=== PATIENT | male | born 1945 | race Caucasian/White ===

== ENCOUNTER 2017-10-02 23:06 | Inpatient (IN) | payer MEDICARE, OTHER ==
[~2017-10-02] VITALS: Ht 175.3 cm; Wt 75.3 kg
--- NOTE | 2017-10-03 01:00 | NUR ---
DR. CRAWLEY CALLED ABOUT HIS STANDING ORDERS OF ATIVAN AND RESTORIL
--- NOTE | 2017-10-03 01:15 | NUR ---
PATIENT ADMITTED FROM [facility], INITIALLY CAME FROM [facility], ARRIVED TO THE UNIT AROUND 0100 ACCOMPANIED BY PARAMEDICS. PATIENT ADMITTED ON 5150 FOR GD. PER HOLD PATIENT WAS CONFUSED, AGITATED, DISORGANIZED, DEPRESSED. PLACED PATIENT IN BED, AWAKE, ALERT, CONFUSED, CALM, COOPERATIVE, WEAK, UNABLE TO AMBULATE, HOME OFFICE CLAIM SPECIALIST ASSIGNED ASSISTED PATIENT TO TRANSFER FROM STRETCHER TO HIS BED, PATIENT REFUSED ALSO TO WALK DUE WEAKNESS ACCORDING TO HIM, "NO CAMINAR". RESPIRATION EVEN, BREATHING PATTERN NON-LABORED, NO APPARENT DISTRESS NOTED. SHOWS NO S/S OF ANY PAIN. BELONGINGS WERE INVENTORIED AND CHECKED FOR CONTRABAND, VALUABLES TO SAFE. SKIN DRY/INTACT. PATIENT IS UNDER THE PSYCHIATRIC CARE OF DR. WAGNER, ORDERS OBTAINED, PATIENT IS UNDER THE MEDICAL CARE OF DR. RON, MED RECON DONE. BED LOCKED AND PLACED ON LOWEST POSITION. WILL CONTINUE TO MONITOR Q 15 MINS. TO MAINTAIN SAFETY.
[2017-10-03] MEDS ORDERED: ENTA200T PO (01:37)
[2017-10-03] MEDS ORDERED: MIRT15TA7 PO (01:37)
[2017-10-03] MEDS ORDERED: HYDR-3024 PO (01:37)
[2017-10-03] MEDS ORDERED: CARB1TAB40 PO (01:37)
[2017-10-03] MEDS ORDERED: HYDR-552 PO ×2 (01:37→01:47)
[2017-10-03] MEDS ORDERED: TAMS0.4C34 PO (01:37)
[2017-10-03] MEDS ORDERED: GABA600T2 PO (01:37)
[2017-10-03] MEDS ORDERED: SUCR1TAB PO (01:37)
[2017-10-03] MEDS ORDERED: LEVO150T8 PO (01:37)
[2017-10-03] MEDS ORDERED: ACET325T53 PO (01:47)
[2017-10-03] MEDS ORDERED: SOLI5TAB2 PO (01:47)
[2017-10-03] MEDS ORDERED: LINA145C PO (01:47)
[2017-10-03] MEDS ORDERED: POLY255P2 PO (01:47)
[2017-10-03] MEDS ORDERED: RASA0.5T2 PO (01:47)
[2017-10-03] MEDS ORDERED: QUET25TA PO (01:52)
[2017-10-03] MEDS ORDERED: DIVA500T2 PO (01:52)
[2017-10-03] MEDS ORDERED: CHLO25CA22 PO (01:52)
[2017-10-03] MEDS ORDERED: hydrOXYzine 10 MG TABLET PO PRN (02:00)
[2017-10-03] MEDS ORDERED: TEMAZEPAM 7.5 MG CAPSULE PO PRN (02:30)
[2017-10-03] MEDS ORDERED: MAGNESIUM HYDROXIDE 30 ML UDC PO PRN (02:30)
[2017-10-03] MEDS ORDERED: QUETIAPINE FUMARATE 25 MG TABLET PO PRN (02:30)
[2017-10-03] MEDS ORDERED: LORAZEPAM 0.5 MG TABLET PO PRN (02:30)
[2017-10-03] MEDS ORDERED: ACETAMINOPHEN 325 MG TABLET PO PRN (02:30)
[2017-10-03] MEDS ORDERED: MAG HYDROX/AL HYDROX/SIMETH 30 ML UDC PO PRN (02:30)
[2017-10-03] MEDS ORDERED: LORAZEPAM 1 MG TABLET PO PRN (04:30)
--- NOTE | 2017-10-03 06:13 | NUR ---
mrsa screen done and collected by general labor forklift operator
--- NOTE | 2017-10-03 06:14 | NUR ---
CALLED FAMILYKANE WITH THE SON GIGI ABOUT PATIENT'S ADMISSION TO THE UNIT.
[2017-10-03] MEDS ORDERED: LEVOTHYROXINE SODIUM 150 MCG TABLET PO SCH (07:30)
[2017-10-03 07:33] LABS: BASOPHILS % (AUTO) 0.3 % (0.0-2.0); EOSINOPHILS % (AUTO) 0.8 % (0.0-6.0); HEMATOCRIT 42 % (39-51); HEMOGLOBIN 14.4 g/dL (13.5-17.5); LYMPHOCYTES # (AUTO) 1.2 /CMM (0.8-4.8); LYMPHOCYTES % (AUTO) 18.9 % (20.0-44.0); MEAN CORPUSCULAR HEMOGLOBIN 34 PG (26.0-33.0); MEAN CORPUSCULAR HGB CONC 34 g/dl (31.0-36.0); MEAN CORPUSCULAR VOLUME 99 fL (80-96); MONOCYTES # (AUTO) 0.5 /CMM (0.1-1.30); MONOCYTES % (AUTO) 7.6 % (2.0-12.0); NEUTROPHILS # (AUTO) 4.4 /CMM (1.8-8.9); NEUTROPHILS % (AUTO) 72.4 % (43.0-81.0); PLATELET COUNT (AUTO) 145 /CMM (150-450); RDW COEFFICIENT OF VARIATION 13.4 (11.5-15.0); RED BLOOD CELL COUNT(AUTO) 4.28 MIL/uL (4.5-6.0); WHITE BLOOD COUNT (AUTO) 6.1 K/uL (4.3-11.0)
[2017-10-03 07:44] LABS: CALCIUM, SERUM 7.8 mg/dL (8.5-10.1); CREATININE 0.9 mg/dL (0.6-1.3); PHOSPHORUS 2.3 mg/dL (2.5-4.9)
[2017-10-03 07:47] LABS: POTASSIUM 2.7 mmol/L (3.5-5.1)
[2017-10-03 07:50] LABS: INR 1.02 (0.87-1.13)
[2017-10-03 07:52] LABS: THYROID STIMULATING HORMONE 5.034 uIU/mL (0.358-3.74)
[2017-10-03 08:00] VITALS: BP 156/89
--- NOTE | 2017-10-03 08:13 | NUR ---
GPS/RN CALLED 2 TIMES ALREADY TO [email or web address] [facility]CHANGE FOR THE ORDERS ON CRITICAL LAB. VALUES. WAITING FOR MD TO CALL BACK
--- NOTE | 2017-10-03 08:26 | NUR ---
GPS/RN ORDERS FOR STAT POTASSIUM RECEIVED FROM DR TIMMONS AND CARRIED OUT
[2017-10-03] MEDS: OXYBUTYNIN CHLORIDE 5 MG TABLET PO SCH ×2 (09:00→18:05)
[2017-10-03] MEDS: TAMSULOSIN 0.4 MG CAP.SR.24H PO SCH (09:00)
[2017-10-03] MEDS ORDERED: ACETAMINOPHEN 325 MG TABLET PO SCH (09:00)
[2017-10-03] MEDS: POLYETHYLENE GLYCOL 3350 17 GM POWD.PACK PO SCH (09:00)
[2017-10-03] MEDS: SUCRALFATE 1 G TABLET PO SCH ×2 (09:00→18:05)
--- NOTE | 2017-10-03 09:24 | NUR ---
GPS/RN ORDERS FOR POTASSIUM REPLACEMENT 40 MEQ PO RECEIVED FROM DR TIMMONS.
[2017-10-03] MEDS ORDERED: LEVOTHYROXINE SODIUM 75 MCG TABLET PO SCH (09:27)
[2017-10-03] MEDS ORDERED: POTASSIUM CHLORIDE 20 MEQ TAB.PRT.SR PO ONE (09:30)
[2017-10-03] MEDS: LEVOTHYROXINE SODIUM 75 MCG TABLET PO SCH (09:50)
[2017-10-03] MEDS: CARBIDOPA/LEV CR 50/200 MG 1 UDTAB.SA PO SCH ×3 (10:00→21:14)
--- NOTE | 2017-10-03 11:13 | NUR ---
GPS/RN PT WAS SPITTING CRASHED MEDS AND REFUSED TO EAT/DRINK.REZA SHELBY MADE AWARE OF PT NONCOMPLIANCE WITH MEDS. NEW ORDERS GIVEN AND CARRIED OUT
--- NOTE | 2017-10-03 12:48 | NUR ---
GPS/RN UNABLE TO START IV AT THIS TIME PT SCREAMING AND FLAILING THE ARMS.
[2017-10-03] MEDS ORDERED: Potassium Chloride 40 MEQ in IV NS 0.9% 1,000 ML IV ONE (13:29)
--- NOTE | 2017-10-03 13:48 | NUR ---
GPS/RN H/L LEFT FA #22 STARTED.WAITING FOR IV BAG FROM PHARMACY.
--- NOTE | 2017-10-03 15:26 | NUR ---
GPS/RN MEDS GIVEN WITH THE HELP OF FAMILY MEMBER, IVF IN FUSING WELL. PT ATE HOME FOOD
[2017-10-03] MEDS ORDERED: K PHOS NEUTRAL 250 MG TABLET PO ONE (15:30)
[2017-10-03 16:00] VITALS: BP 125/82
[2017-10-03] MEDS: risperiDONE 1 MG TABLET PO SCH (18:05)
--- NOTE | 2017-10-03 19:30 | NUR ---
RN NOTES RECEIVED PATIENT IN BED AWAKE, AO TO PERSON AND FAMILY MEMBERS. NO ACUTE DISTRESS NOTED. NO SIGNS OF PAIN NOTED. IV SITE PATENT, INTACT; IVF INFUSING ORDERED. AT BEDSIDE. PATIENT CALM AT THIS TIME. SAFETY REMINDERS GIVEN TO PATIENT AND . PATIENT ON LOW BED WITH BILATERAL UPPER SIDE RAILS UP. CALL SOTO WITHIN EASY REACH. WILL CONTINUE TO MONITOR.
[2017-10-03 20:00] VITALS: BP 139/76
[2017-10-03] MEDS: GABAPENTIN 300 MG CAPSULE PO SCH (21:13)
[2017-10-03] MEDS: MIRTAZAPINE 15 MG TABLET PO SCH (21:14)
[2017-10-03] MEDS: TEMAZEPAM 15 MG CAPSULE PO PRN (21:59)
[2017-10-04] MEDS: CARBIDOPA/LEV CR 50/200 MG 1 UDTAB.SA PO SCH ×3 (05:37→20:23)
--- NOTE | 2017-10-04 06:12 | NUR ---
RN NOTES PATIENT ASLEEP, EASILY AROUSABLE. RESPIRATIONS EVEN. NO SIGNS OF PAIN NOTED. DUE MEDS GIVEN WITH NO ASE NOTE. NEEDS ATTENDED. KEPT CLEAN, DRY, AND COMFORTABLE. SAFETY PRECAUTIONS AND COMFORT MEASURES IN PLACE. WILL GIVE REPORT TO DAY SHIFT FOR CONTINUITY OF CARE.
[2017-10-04 08:00] VITALS: BP 150/66
[2017-10-04] MEDS: POLYETHYLENE GLYCOL 3350 17 GM POWD.PACK PO SCH (09:00)
[2017-10-04] MEDS: SUCRALFATE 1 G TABLET PO SCH ×2 (10:29→17:56)
[2017-10-04] MEDS: OXYBUTYNIN CHLORIDE 5 MG TABLET PO SCH ×2 (10:29→17:56)
[2017-10-04] MEDS: TAMSULOSIN 0.4 MG CAP.SR.24H PO SCH (10:29)
[2017-10-04] MEDS: LEVOTHYROXINE SODIUM 75 MCG TABLET PO SCH (10:29)
[2017-10-04] MEDS: risperiDONE 1 MG TABLET PO SCH ×2 (10:30→17:57)
[2017-10-04] MEDS ORDERED: LINZESS 145 MG PO SCH (11:00)
[2017-10-04 12:46] LABS: ALBUMIN 3.3 g/dL (3.4-5.0); CALCIUM, SERUM 8.2 mg/dL (8.5-10.1); CREATININE 0.9 mg/dL (0.6-1.3); TOTAL PROTEIN, SERUM 6.9 g/dL (6.4-8.2)
--- NOTE | 2017-10-04 14:41 | NUR ---
GPS/RN REZA SHELBY POT FLUXER MADE AWARE OF LOW POTASSIUM.
[2017-10-04] MEDS ORDERED: POTASSIUM CHLORIDE 20 MEQ TAB.PRT.SR PO ONE (15:00)
[2017-10-04 16:00] VITALS: BP 115/65
--- NOTE | 2017-10-04 19:20 | NUR ---
PATIENT'S DAUGHTER, EDDIE WILL BRING PATIENT'S HOME MEDS, JENISE AGUSTIN AM, 10/05/17
--- NOTE | 2017-10-04 19:53 | NUR ---
ANGELY MORGAN WILL BRING THE MEDICATION JENISE VELEZ AM, Addendum: 10/04/17 at 2006 by MADIHA ANDREW RN NOTES ABOVE INTENDED FOR ANOTHER PATIENT. USER ERROR.
[2017-10-04 20:01] VITALS: BP 140/70
--- NOTE | 2017-10-04 20:20 | NUR ---
Patient refused Temazepam cap for sleep per family's request. Will waste medication.
--- NOTE | 2017-10-04 20:20 | NUR ---
PATIENT TOOK HIS CARBIDOPA MEDICATION FOR [facility]'S, FAMILY AT THE BEDSIDE AT 2022.
[2017-10-04] MEDS: GABAPENTIN 300 MG CAPSULE PO SCH (21:00)
[2017-10-04] MEDS: MIRTAZAPINE 15 MG TABLET PO SCH (21:01)
--- NOTE | 2017-10-04 21:05 | NUR ---
PATIENT REFUSED HIS GABAPENTIN AND MIRTAZAPINE TONIGHT
[2017-10-05] MEDS: CARBIDOPA/LEV CR 50/200 MG 1 UDTAB.SA PO SCH ×3 (05:00→21:43)
[2017-10-05] MEDS: LEVOTHYROXINE SODIUM 75 MCG TABLET PO SCH (07:30)
[2017-10-05 08:00] VITALS: BP 168/90
[2017-10-05 08:13] VITALS: BP 160/90
[2017-10-05] MEDS: SUCRALFATE 1 G TABLET PO SCH ×2 (09:00→16:45)
[2017-10-05] MEDS: risperiDONE 1 MG TABLET PO SCH ×3 (09:00→16:45)
[2017-10-05] MEDS: POLYETHYLENE GLYCOL 3350 17 GM POWD.PACK PO SCH (09:00)
[2017-10-05] MEDS: OXYBUTYNIN CHLORIDE 5 MG TABLET PO SCH ×2 (09:00→16:46)
[2017-10-05] MEDS: TAMSULOSIN 0.4 MG CAP.SR.24H PO SCH (09:00)
[2017-10-05 09:37] VITALS: BP 149/86
--- NOTE | 2017-10-05 14:13 | NUR ---
INITIAL DISCHARGE PLAN: Pt wishes to return home to [address] [place] [id number] . SW confirmed with pts Richelle Borden [phone] who also wishes for pt to return home. RAYO will help form a safe and proper discharge home in collaboration with .
[2017-10-05 16:00] VITALS: BP 165/96
[2017-10-05 20:14] VITALS: BP 117/67
[2017-10-05] MEDS: GABAPENTIN 300 MG CAPSULE PO SCH (21:43)
[2017-10-05] MEDS: MIRTAZAPINE 15 MG TABLET PO SCH (21:43)
[2017-10-05] MEDS: TEMAZEPAM 15 MG CAPSULE PO PRN (23:02)
--- NOTE | 2017-10-05 23:06 | NUR ---
GPS/RN STILL AWAKE AT THIS TIME, RESTORIL 15 MG PO WAS GIVEN ORDERED. WILL MONITOR.
[2017-10-06] MEDS: CARBIDOPA/LEV CR 50/200 MG 1 UDTAB.SA PO SCH ×3 (06:14→21:25)
--- NOTE | 2017-10-06 06:16 | NUR ---
GPS/RN AWAKENED PATIENT TO TAKE SINEMET. TOLERATED. PATIENT SLEPT GOOD AFTER TAKING RESTORIL 15 MG PO. ALL NEEDS ATTENDED AT THIS TIME. WILL CONTINUE TO MONITOR.
[2017-10-06 08:50] VITALS: BP 120/75
[2017-10-06] MEDS: SUCRALFATE 1 G TABLET PO SCH ×2 (09:19→17:00)
[2017-10-06] MEDS: LEVOTHYROXINE SODIUM 75 MCG TABLET PO SCH (09:19)
[2017-10-06] MEDS: OXYBUTYNIN CHLORIDE 5 MG TABLET PO SCH ×2 (09:20→17:00)
[2017-10-06] MEDS: TAMSULOSIN 0.4 MG CAP.SR.24H PO SCH (09:20)
[2017-10-06] MEDS: risperiDONE 0.25 MG TABLET PO SCH ×2 (09:22→17:00)
[2017-10-06] MEDS: POLYETHYLENE GLYCOL 3350 17 GM POWD.PACK PO SCH (10:12)
[2017-10-06 16:00] VITALS: BP 112/75
--- NOTE | 2017-10-06 18:20 | NUR ---
GPS/RN-NOTES PATIENT REFUSED ALL 17OO MEDICATIONS DESPITE THE [place] STAFF EXPLAINED RISK AND BENEFITS. STATED" I ONLY TAKE MEDICATIONS WHEN MY SON IS HERE". OFFERED X3.
[2017-10-06] MEDS: MIRTAZAPINE 15 MG TABLET PO SCH (21:25)
[2017-10-06] MEDS: GABAPENTIN 300 MG CAPSULE PO SCH (21:25)
[2017-10-07] MEDS: CARBIDOPA/LEV CR 50/200 MG 1 UDTAB.SA PO SCH ×4 (05:22→22:06)
[2017-10-07] MEDS: LEVOTHYROXINE SODIUM 75 MCG TABLET PO SCH (07:30)
[2017-10-07 08:00] VITALS: BP 143/91
[2017-10-07] MEDS: SUCRALFATE 1 G TABLET PO SCH ×2 (08:36→16:18)
[2017-10-07] MEDS: POLYETHYLENE GLYCOL 3350 17 GM POWD.PACK PO SCH (08:36)
[2017-10-07] MEDS: TAMSULOSIN 0.4 MG CAP.SR.24H PO SCH (08:36)
[2017-10-07] MEDS: risperiDONE 0.25 MG TABLET PO SCH ×2 (08:36→16:18)
[2017-10-07] MEDS: OXYBUTYNIN CHLORIDE 5 MG TABLET PO SCH ×2 (08:36→16:18)
[2017-10-07 16:00] VITALS: BP 162/92
--- NOTE | 2017-10-07 16:20 | NUR ---
vegetable preparer aware patient has poor oral intake and is not med complaint.
[2017-10-07 17:00] VITALS: BP 147/86
[2017-10-07 18:50] VITALS: BP 147/86
--- NOTE | 2017-10-07 18:54 | NUR ---
family at bedside. pt ate 100% of his dinner meal.
--- NOTE | 2017-10-07 19:23 | NUR ---
GPS RN NOTES RECEVIED REPORTS FROM DAY SHIFT NURSE , PT. FAMILY CALLING TO DAY NURSE TO SEE THE PATIENT,THIS HIDE STRETCHER HAND WENT TO SEE THE PATIENT WITH DAY NURSE . PT. FAMILY C/O RIGHT ANKLE PAIN , AFTER PHYSICAL THERAPY WALKING TO THE PT. NOTIFIED CLIENT RESOURCE SPECIALIST DR. ANTHONY , WAITING TO CALL BACK. Addendum: 10/07/17 at 1949 by MIGUEL ANGEL MCGINNIS RN CORRECTION ON MY ABOVE NOTES : LEFT ANKLE PAIN / PER FAMILY MEMBER, NOT RIGHT ANKLE PAIN
--- NOTE | 2017-10-07 19:42 | NUR ---
GPS/RN-NOTES PATIENT WAS SEEN BY DR. WAGNER AND HE'S AWARE OF LEFT ANKLE PAIN, AND AWARE OF PT. WAS REFUSING MEDICATION AND POOR INTAKE .
--- NOTE | 2017-10-07 19:49 | NUR ---
GPS RN NOTES: RECEIVED VERBAL ORDERS FROM DR. HENNING , FOR LEFT FOOT ANKLE, APPLY ICE PACK AND MOTRIN 400 MG PO PRN Q8H, NOTED AND CARRIED OUT.
--- NOTE | 2017-10-07 19:49 | NUR ---
GPS RN NOTES: RECEIVED VERBAL ORDERS FROM DR. HENNING , APPLY ICE PACK AND MOTRIN 400 MG PO PRN Q8H, NOTED AND CARRIED OUT.
[2017-10-07] MEDS ORDERED: IBUPROFEN 400 MG TABLET PO PRN (20:00)
[2017-10-07 20:12] VITALS: BP 117/69
--- NOTE | 2017-10-07 20:56 | NUR ---
GPS RN NOTES : PT. C/O LEFT FOOT ANKLE PAIN 06/20 , MOTRIN 400 MG PO PRN GIVEN, PER PT. REQUEST, WILL CONTINUE TO MONITOR
[2017-10-07] MEDS: MIRTAZAPINE 15 MG TABLET PO SCH (22:07)
[2017-10-07] MEDS: GABAPENTIN 300 MG CAPSULE PO SCH (22:07)
--- NOTE | 2017-10-08 06:38 | NUR ---
GPS RN NOTES; PT. RESTING HIS BED , DURING SHIFT PT. SLEPT 9 HOURS OF SLEEP, NO ACUTE DISTRESS NOTED ,LEFT FOOT ANKLE DENIES ANY DISCOMFORT AT THIS TIME, ENDORSE TO ON COMING NURSE FOR CONTINUITY OF CARE.
[2017-10-08] MEDS: LEVOTHYROXINE SODIUM 75 MCG TABLET PO SCH (07:30)
[2017-10-08 08:00] VITALS: BP 150/87
[2017-10-08] MEDS: OXYBUTYNIN CHLORIDE 5 MG TABLET PO SCH ×2 (08:48→17:00)
[2017-10-08] MEDS: POLYETHYLENE GLYCOL 3350 17 GM POWD.PACK PO SCH (08:48)
[2017-10-08] MEDS: SUCRALFATE 1 G TABLET PO SCH ×2 (08:48→17:00)
[2017-10-08] MEDS: TAMSULOSIN 0.4 MG CAP.SR.24H PO SCH (08:48)
[2017-10-08] MEDS: risperiDONE 0.25 MG TABLET PO SCH ×2 (08:48→17:00)
--- NOTE | 2017-10-08 09:00 | NUR ---
GPS/RN PATIENT REFUSED A.M. MEDICATION X 3, EXPLAINED RISKS AND BENEFITS (WITH VEHICLE OPERATOR INTERPRETATION IN BENINESE), STATED "I DON'T NEED ANY MEDICATION. "WILL CONTINUE TO ENCOURAGE TO COMPLY WITH MD REGIMEN.
--- NOTE | 2017-10-08 09:50 | NUR ---
GPS/E BUSINESS PROJECT MANAGER WAS NOTIFIED OF REFUSAL TO TAKE A.M. MEDICATIONS. PATIENT REFUSED TO SPEAK WITH FAMILY ON PHONE FOR ENCOURAGEMENT, STATED " IM VERY ANGRY WITH THEM", WILL CONTINUE TO ENCOURAGE TO COMPLY WITH MD REGIMEN.
--- NOTE | 2017-10-08 09:50 | NUR ---
PATIENT WAS ENCOUARGED BY FAMILY OVER PHONE Addendum: 10/08/17 at 1136 by DAMASO JOSHI RN DISREGARD ABOVE NOTE.
--- NOTE | 2017-10-08 11:00 | NUR ---
GPS/RN PATIENT NOTED WITH CLEAR DISCHARGE FROM [facility], PER DR CHAKRABORTY, NEW ORDER FOR GRAM STAIN CULTURE WITH WHITE CELL COUNT, SAMPLE COLLECTED AND LAB CALLED FOR PICKUP. NEW ORDER FOR OVA PARASITE PUT IN SYSTEM, AWAITING STOOL SAMPLE COLLECTION FROM PATIENT, NO BM AT THIS TIME. .
--- NOTE | 2017-10-08 12:33 | NUR ---
GPS/RN PATIENT REFUSED LUNCH X 3, EXPLAINED RISKS AND BENEFITS. WILL CONTINUE TO ENCOURAGE ADEQUATE INTAKE.
--- NOTE | 2017-10-08 12:37 | NUR ---
GPS/RN PATIENT REFUSED SINEMET X 3, EXPLAINED RISKS AND BENEFITS, WILL CONTINUE TO ENCOURAGE TO COMPLY WITH MD REGIMEN.
[2017-10-08] MEDS: CARBIDOPA/LEV CR 50/200 MG 1 UDTAB.SA PO SCH ×2 (13:00→21:00)
--- NOTE | 2017-10-08 15:57 | NUR ---
GPS/RN NO BM AT THIS TIME, EMBOSSING TOOL SETTER AWARE TO NOTIFY RN WHEN PATIENT HAS BM FOR COLLECTION OF SPECIMEN.
[2017-10-08 16:00] VITALS: BP 150/82
--- NOTE | 2017-10-08 17:36 | NUR ---
GPS/RN PATIENT HAS VERY POOR MEAL INTAKE THROUGHOUT SHIFT. IMAGERY ANALYST AND RN ATTEMPTED TO FEED PATIENT BUT IS ADAMANTLY REFUSING HIS MEALS. OFFERED SNACKS BUT REFUSED, DRANK I JUICE, 2 CUPS OF WATER AND 1/2 CARTON OF MILK. WILL CONTINUE TO ENCOURAGE AND EXPLAIN THE IMPORTANCE OF ADEQUATE INTAKE.
--- NOTE | 2017-10-08 17:42 | NUR ---
GPS/RN PATIENT ADAMANTLY REFUSED 1700 MEDICATIONS X 3, EXPLAINED RISKS AND BENEFITS, CONTINUES TO REFUSE, WILL CONTINUE TO ENCOURAGE TO COMPLY WITH MD REGIMEN.
[2017-10-08 20:00] VITALS: BP 117/67
[2017-10-08] MEDS: risperiDONE LIQUID 1 MG/ML ML PO SCH (21:00)
[2017-10-08] MEDS: MIRTAZAPINE 15 MG TABLET PO SCH (21:13)
[2017-10-08] MEDS: GABAPENTIN 300 MG CAPSULE PO SCH (21:13)
--- NOTE | 2017-10-08 21:14 | NUR ---
GPS/[facility] NOTES: PT. REFUSED ALL HS MEDS ORDERED. OFFERED 3X. EXPLAINED RISK AND BENEFITS. PT. STILL REFUSED. PT. GETS AGITATED WHEN ASKED. WILL CONTINUE TO MONITOR.
[2017-10-09] MEDS: CARBIDOPA/LEV CR 50/200 MG 1 UDTAB.SA PO SCH ×4 (05:00→21:00)
[2017-10-09] MEDS: LEVOTHYROXINE SODIUM 75 MCG TABLET PO SCH ×2 (07:30→08:37)
[2017-10-09 08:07] VITALS: BP 128/79
[2017-10-09] MEDS: SUCRALFATE 1 G TABLET PO SCH ×3 (08:37→17:00)
[2017-10-09] MEDS: OXYBUTYNIN CHLORIDE 5 MG TABLET PO SCH ×3 (08:37→17:00)
[2017-10-09] MEDS: TAMSULOSIN 0.4 MG CAP.SR.24H PO SCH ×2 (08:37→09:00)
[2017-10-09] MEDS: POLYETHYLENE GLYCOL 3350 17 GM POWD.PACK PO SCH ×2 (08:37→09:00)
[2017-10-09] MEDS: risperiDONE LIQUID 1 MG/ML ML PO SCH ×3 (08:51→21:00)
--- NOTE | 2017-10-09 12:14 | NUR ---
RN NOTE: PATIENT REFUSED MEDS. TRIED TO OFFER OVER 3X.
[2017-10-09 16:00] VITALS: BP 146/92
[2017-10-09 20:00] VITALS: BP 149/82
[2017-10-09] MEDS: GABAPENTIN 300 MG CAPSULE PO SCH (21:13)
[2017-10-09] MEDS: MIRTAZAPINE 15 MG TABLET PO SCH (21:13)
--- NOTE | 2017-10-09 21:14 | NUR ---
PATIENT REFUSED ALL HIS NIGHT MEDICATIONS
--- NOTE | 2017-10-09 22:30 | NUR ---
ADMITTED FROM [facility], ARRIVED TO THE UNIT AROUND 2230. PATIENT ADMITTED ON 5150 FOR GD. PER HOLD PATIENT IS DISORIENTED, WANTING FOR HELP, DOES NOT REMEMBER WHILE SHE WAS AT THE HOSPITAL EARLIER IN THE DAY. SHE CONTACTED 911 REQUESTING FOR HELP, ASKING FOR HER FATHER, DOES NOT KNOW IF HE IS . PATIENT IS FORGETFUL, ANXIOUS, CONFUSED. PATIENT AWAKE, ALERT, ORIENTED X2, NAME AND TIME. PATIENT ABLE TO AMBULATE TO THE TOILET NOW WITH ASSISTANCE. SKIN ASSESSMENT DONE, NO PRESSURE ULCER NOTED BUT ABRASIONS. PATIENT REFUSED TO SIGN DOCUMENTS/CONSENTS. BELONGINGS WERE INVENTORIED AND CHECKED FOR CONTRABAND. VALUABLES PUT TO SAFE. PATIENT SHOWS NO S/S OF ANY DISCOMFORT, NO ACUTE DISTRESS NOTED. RESPIRATION EVEN, BREATHING PATERN NON-LABORED. PATIENT IS UNDER THE PSYCHIATRIC CARE OF DR. LOYA AND UNDER THE MEDICAL CARE OF DR. CHAKRABORTY. BED LOCKED AND PLACED ON LOWER POSITION TO MAINTAIN SAFETY. WILL CONTINUE TO MONITOR FOR SAFETY AND BEHAVIOR.
[2017-10-10] MEDS: CARBIDOPA/LEV CR 50/200 MG 1 UDTAB.SA PO SCH ×3 (05:00→21:00)
--- NOTE | 2017-10-10 05:42 | NUR ---
REFUSED MORNING DOSE OF HIS SINEMET TODAY @ 6304
[2017-10-10] MEDS: LEVOTHYROXINE SODIUM 75 MCG TABLET PO SCH (07:30)
[2017-10-10 08:00] VITALS: BP 147/84
[2017-10-10] MEDS: OXYBUTYNIN CHLORIDE 5 MG TABLET PO SCH ×2 (09:00→17:00)
[2017-10-10] MEDS: POLYETHYLENE GLYCOL 3350 17 GM POWD.PACK PO SCH (09:00)
[2017-10-10] MEDS: SUCRALFATE 1 G TABLET PO SCH ×2 (09:00→17:00)
[2017-10-10] MEDS: risperiDONE LIQUID 1 MG/ML ML PO SCH ×2 (09:00→21:00)
[2017-10-10] MEDS: TAMSULOSIN 0.4 MG CAP.SR.24H PO SCH (09:00)
--- NOTE | 2017-10-10 12:55 | NUR ---
Pt. bit the arm of the the ware tester, pt. is resistive to care, aggressive, restless, trying to get up in the nelli chair and not following direction. Addendum: 10/10/17 at 1258 by SHANTA HUERTA RN Refusing po med Addendum: 10/10/17 at 1804 by SHANTA HUERTA RN Dr. Salazar notified with an order of Zyprexa 5 mg IM
[2017-10-10] MEDS ORDERED: OLANZAPINE 10 MG VIAL IM ONE (13:00)
[2017-10-10 16:00] VITALS: BP 137/77
--- NOTE | 2017-10-10 17:03 | NUR ---
GPS/RN-NOTES PATIENT REFUSED ALL 1700 MEDICATIONS DESPITE ENCOURAGEMENT. OFFERED X3
--- NOTE | 2017-10-10 18:40 | NUR ---
GPS/RN-NOTES PATIENT HAD NO BM TODAY, WILL ENDORSE TO INCOMING NURSE FOR THE CONTINUITY OF CARE AND STOOL COLLECTION.
--- NOTE | 2017-10-10 18:55 | NUR ---
GPS/RN-NOTES BERKLEY HARE MADE AWARE OF THE RESULTS OF THE BODY FLUID RESULTS TODAY WITH NNO.
[2017-10-10 20:00] VITALS: BP 159/92
[2017-10-10] MEDS: MIRTAZAPINE 15 MG TABLET PO SCH (21:37)
[2017-10-10] MEDS: GABAPENTIN 300 MG CAPSULE PO SCH (21:37)
[2017-10-11] MEDS: CARBIDOPA/LEV CR 50/200 MG 1 UDTAB.SA PO SCH ×3 (05:00→21:13)
[2017-10-11] MEDS: LEVOTHYROXINE SODIUM 75 MCG TABLET PO SCH (07:30)
[2017-10-11 08:00] VITALS: BP 149/87
[2017-10-11] MEDS: SUCRALFATE 1 G TABLET PO SCH ×2 (08:46→17:00)
[2017-10-11] MEDS: OXYBUTYNIN CHLORIDE 5 MG TABLET PO SCH ×2 (08:46→17:00)
[2017-10-11] MEDS: POLYETHYLENE GLYCOL 3350 17 GM POWD.PACK PO SCH (08:47)
[2017-10-11] MEDS: TAMSULOSIN 0.4 MG CAP.SR.24H PO SCH (08:47)
[2017-10-11] MEDS: risperiDONE LIQUID 1 MG/ML ML PO SCH ×2 (08:47→21:13)
[2017-10-11 15:57] VITALS: BP 141/88
[2017-10-11 20:13] VITALS: BP 150/71
--- NOTE | 2017-10-11 21:00 | NUR ---
GPS-RN PATIENT TOOK ALL HIS NIGHT SCHEDULED MEDS, TOLERATED WELL. WILL CONTINUE TO MONITOR.
[2017-10-11] MEDS: MIRTAZAPINE 15 MG TABLET PO SCH (21:13)
[2017-10-11] MEDS: GABAPENTIN 300 MG CAPSULE PO SCH (21:24)
[2017-10-12] MEDS ORDERED: CARBIDOPA/LEV CR 50/200 MG 1 UDTAB.SA ONE (02:51)
--- NOTE | 2017-10-12 02:58 | NUR ---
RN NOTES HAD CHARGE NURSE OVERRIDE SINEMET 50MG/200MG. ASSUMED MEDICATION OUT OF STOCK IN OMNICELL. WILL ADMINISTER AT SCHEDULED TIME OF 0500.
[2017-10-12] MEDS: CARBIDOPA/LEV CR 50/200 MG 1 UDTAB.SA PO SCH ×3 (04:53→21:00)
--- NOTE | 2017-10-12 04:55 | NUR ---
GPS-RN PATIENT NOTED TO HAVE NO BOWEL MOVEMENT. ADMINISTERED MILK OF MAGNESIA 30ML PO ORDERED. FLUIDS GIVEN TOLERATED. WILL CONTINUE TO MONITOR.
[2017-10-12 08:00] VITALS: BP 122/72
[2017-10-12] MEDS: SUCRALFATE 1 G TABLET PO SCH ×3 (08:05→17:00)
[2017-10-12] MEDS: LEVOTHYROXINE SODIUM 75 MCG TABLET PO SCH (08:05)
[2017-10-12] MEDS: POLYETHYLENE GLYCOL 3350 17 GM POWD.PACK PO SCH (08:06)
[2017-10-12] MEDS: OXYBUTYNIN CHLORIDE 5 MG TABLET PO SCH ×3 (08:06→17:00)
[2017-10-12] MEDS: risperiDONE LIQUID 1 MG/ML ML PO SCH ×3 (08:06→21:00)
[2017-10-12] MEDS: TAMSULOSIN 0.4 MG CAP.SR.24H PO SCH (08:06)
--- NOTE | 2017-10-12 08:30 | NUR ---
GPS/RN PATIENT REFUSED BREAKFAST X 3, EXPLAINED RISKS AND BENEFITS. PATIENT IS SPITTING OUT FOOD FROM MOUTH, WILL CONTINUE TO ENCOURAGE ADEQUATE INTAKE.
--- NOTE | 2017-10-12 09:00 | NUR ---
GPS/RN PATIENT IS AGITATED UPON APPROACH, GRABBING STAFF HAND WHEN ATTEMPTING TO ADMINISTER MEDS, REFUSED A.M. MEDICATION X 3, EXPLAINED RISKS AND BENEFITS, WILL CONTINUE TO ENCOURAGE TO COMPLY WITH MD REGIMEN.
--- NOTE | 2017-10-12 12:45 | NUR ---
GPS/RN ORDERED ENSURE ENLIVE TID PER DR MARES.
--- NOTE | 2017-10-12 12:47 | NUR ---
GPS/RN PATIENT REFUSED 1300 CARBIDOPA/LEVODOPA X 3, EXPLAINED RISKS AND BENEFITS, WILL CONTINUE TO ENCOURAGE TO COMPLY WITH MD REGIMEN. Addendum: 10/12/17 at 1257 by DAMASO JOSHI RN PATIENT IS CURSING AT STAFF WHILE REFUSING MEDICATION, STATED F YOUR MOTHER, F YOUR MOTHER"
[2017-10-12] MEDS: ENSURE ENLIVE 237 ML LIQUID (VANILLA) PO SCH ×2 (13:00→17:00)
--- NOTE | 2017-10-12 15:00 | NUR ---
GPS/RN PATIENT REFUSED ENSURE X 3, SPIT OUT AT RN, EXPLAINED RISKS AND BENEFITS, WILL CONTINUE TO EDUCATE ON THE IMPORTANCE OF ADEQUATE INTAKE. WILL CONTINUE TO MONITOR.
[2017-10-12 16:00] VITALS: BP 147/88
--- NOTE | 2017-10-12 16:00 | NUR ---
GPS/RN DR MARES AWARE THAT PATIENT IS DRINKING ONLY SMALL SIPS OF WATER DURING SHIFT AND REFUSED BREAKFAST, LUNCH AND ENSURE'S. NEW ORDER FOR BMP. ORDERED STAT BMP, AWAITING LAB.
[2017-10-12 18:24] LABS: CALCIUM, SERUM 8.9 mg/dL (8.5-10.1); CREATININE 1.2 mg/dL (0.6-1.3); POTASSIUM 3.4 mmol/L (3.5-5.1)
[2017-10-12 20:52] VITALS: BP 128/69
[2017-10-12] MEDS: GABAPENTIN 300 MG CAPSULE PO SCH (21:51)
[2017-10-12] MEDS: MIRTAZAPINE 15 MG TABLET PO SCH (21:51)
[2017-10-13] MEDS: CARBIDOPA/LEV CR 50/200 MG 1 UDTAB.SA PO SCH ×2 (05:41→12:19)
[2017-10-13 08:00] VITALS: BP 146/85
[2017-10-13] MEDS: ENSURE ENLIVE 237 ML LIQUID (VANILLA) PO SCH ×2 (09:00→12:19)
--- NOTE | 2017-10-13 09:00 | NUR ---
GPS RN NOTE: RECEIVED PATIENT ALERT AND ORIENTED X 1 IN BED AWAKE, ASSISTED INTO GERICHAIR BY CNAS AND ATE ONLY BITES AND SIPS FOR BREAKFAST. IN NO APPARENT DISTRESS WITHOUT COMPLAINTS WHEN PROMPTED TO ANSWER, IN TV ROOM AWAKE IN GERICHAIR AT THIS TIME. Q 15 FOR SAFETY AND COMFORT.
[2017-10-13] MEDS: POLYETHYLENE GLYCOL 3350 17 GM POWD.PACK PO SCH (09:59)
[2017-10-13] MEDS: OXYBUTYNIN CHLORIDE 5 MG TABLET PO SCH (09:59)
[2017-10-13] MEDS: SUCRALFATE 1 G TABLET PO SCH (09:59)
[2017-10-13] MEDS: LEVOTHYROXINE SODIUM 75 MCG TABLET PO SCH (09:59)
[2017-10-13] MEDS: TAMSULOSIN 0.4 MG CAP.SR.24H PO SCH (09:59)
[2017-10-13] MEDS: risperiDONE LIQUID 1 MG/ML ML PO SCH (10:02)
--- NOTE | 2017-10-13 13:00 | NUR ---
PATIENT REMAINS AWAKE AND IN DONNIE CHAIR CALM NO DISTRESS AND DENIES COMPLAINTS. PATIENT IS CONFUSED AND REFUSED NOON MEDICATION, ATE 25% LUNCH. SMALL AMOUNT OF LIQUID.
--- NOTE | 2017-10-13 16:05 | NUR ---
GPS EXTRUSION DIE REPAIRER NOTE: RECEIVED TRANSFER ORDERS TO [facility] UNIT PER MD, PATIENT HAS BACTERIAL INFECTION E. COLI, KLEBSIELLA ORGANISMS IN DISCHARGE FROM [facility]. PATIENT MADE AWARE OF REASON FOR TRANSFER, FAMILY MADE AWARE OF NEW ROOM AND REASON FOR TRANSFER. PATIENT ALERT X 1, NO APPARENT DISTRESS, NO COMPLAINTS BUT REFUSED SKIN ASSESSMENT UPON TRANSFER. TRANSFERRED AT 1600 VIA DONNIE CHAIR WITH RN/MAJOR ASSEMBLY INSPECTOR ESCORT AND ALL PATIENT BELONGINGS. REPORT GIVEN TO SHELLY BAJWA IN ROOM 322-B.
[2017-10-13] MEDS ORDERED: HALOPERIDOL LACTATE INJ 5 MG/ML VIAL IM PRN (17:00)
[2017-10-13] MEDS ORDERED: OXYB5TAB11 PO (17:11)
[2017-10-13] MEDS ORDERED: RISP1TAB27 PO (17:11)
[2017-10-13] MEDS ORDERED: IBUP-1953 PO (17:11)
[2017-10-13] MEDS ORDERED: MAGN400O6 PO (17:11)
[2017-10-13] MEDS ORDERED: HALO5SYR IM (17:11)
[2017-10-13] MEDS ORDERED: LORA1TAB PO (17:11)
[2017-10-13] MEDS ORDERED: TEMA15CA PO (17:11)
[2017-10-13] MEDS ORDERED: MAG30ORA PO (17:11)
== END 2017-10-13 15:35 | disposition short-term general hospital (02) | DRG 881 ==
LOC: GPS 23:06
PROVIDERS: ADMIT Registered Nurse; ATTEND Psychiatry & Neurology Psychiatry
DX: F32.9 Major depressive disorder, single episode, unspecified (principal); F01.50 Vascular dementia, unspecified severity, without behavioral disturbance, psychotic disturbance, mood disturbance, and anxiety; F29 Unspecified psychosis not due to a substance or known physiological condition; Z73.6 Limitation of activities due to disability; E87.6 Hypokalemia; E03.9 Hypothyroidism, unspecified; G20 Parkinson's disease; I10 Essential (primary) hypertension; K21.9 Gastro-esophageal reflux disease without esophagitis; K58.1 Irritable bowel syndrome with constipation; N40.0 Benign prostatic hyperplasia without lower urinary tract symptoms; N43.3 Hydrocele, unspecified; Z91.14 Patient's other noncompliance with medication regimen; K59.00 Constipation, unspecified; R73.9 Hyperglycemia, unspecified; K62.89 Other specified diseases of anus and rectum; B96.20 Unspecified Escherichia coli [E. coli] as the cause of diseases classified elsewhere; B96.89 Other specified bacterial agents as the cause of diseases classified elsewhere
CPT/HCPCS: 36415; 80048-TC; 80053-TC; 80061-TC; 82962-TC; 83735-TC; 84100-TC; 84132-TC; 84443-TC; 85025-TC; 85610-TC; 85730-TC; 87070-TC; 87081-TC; 87186-TC; 97110-TC; 97116-TC; 97530-TC; A6402; J3480; J3490; J7030; Q0177